=== PATIENT | female | born 1975 | race Caucasian/White ===

== ENCOUNTER 2018-01-13 18:14 | Emergency (ER) | payer SELFPAY ==
[2018-01-13 18:33] VITALS: BP 125/88
== END 2018-01-13 19:42 | disposition left against medical advice (07) ==
LOC: DL.ED 18:14
DX: Z53.21 Procedure and treatment not carried out due to patient leaving prior to being seen by health care provider (principal)

== ENCOUNTER 2023-08-08 06:50 | Day surgery (SDC) | payer OTHER ==
[~2023-08-08 06:50] MED LIST: Midazolam 1 MG/ML 2 ML SDV IV ONE; fentaNYL 100 MCG/2 ML SDV IV ONE
[2023-08-08] MEDS ORDERED: Dextrose 5%-0.45% NaCl 1,000 ML IV SCH (07:00)
[2023-08-08] MEDS ORDERED: Midazolam 1 MG/ML 2 ML SDV ONE (07:02)
[2023-08-08] MEDS ORDERED: fentaNYL 100 MCG/2 ML SDV ONE (07:02)
[2023-08-08] MEDS ORDERED: fentaNYL 100 MCG/2 ML SDV IV ONE ×5 (08:06→08:17)
[2023-08-08] MEDS ORDERED: Midazolam 1 MG/ML 2 ML SDV IV ONE ×6 (08:07→08:13)
[2023-08-08 09:50] VITALS: BP 133/90; PULSE 75
== END 2023-08-08 10:15 | disposition home or self-care (01) ==
LOC: DL.ENDO 06:50
PROVIDERS: ATTEND Internal Medicine Gastroenterology
DX: D12.3 Benign neoplasm of transverse colon (principal); K57.30 Diverticulosis of large intestine without perforation or abscess without bleeding; F41.1 Generalized anxiety disorder; E66.09 Other obesity due to excess calories; Z68.42 Body mass index [BMI] 45.0-49.9, adult; Z79.899 Other long term (current) drug therapy; Z98.890 Other specified postprocedural states; Z88.0 Allergy status to penicillin; Z88.8 Allergy status to other drugs, medicaments and biological substances; Z88.5 Allergy status to narcotic agent; Z91.040 Latex allergy status; Z91.041 Radiographic dye allergy status
CPT/HCPCS: J2250; J3010; J7042